=== PATIENT | male | born 1995 | race Caucasian/White ===

== ENCOUNTER 2018-06-10 12:16 | Emergency (ER) | payer MEDICAID ==
[~2018-06-10] VITALS: Ht 172.7 cm; Wt 63.6 kg
[2018-06-10 12:25] VITALS: Ht 172.7 cm; Wt 63.6 kg
[2018-06-10 13:08] VITALS: BP 122/81
[2018-06-10] MEDS ORDERED: AMOXICILLIN500 M1 PO (13:13)
== END 2018-06-10 13:09 | disposition home or self-care (01) ==
LOC: D.ER 12:16
DX: J02.9 Acute pharyngitis, unspecified (principal); R51 Headache; F17.200 Nicotine dependence, unspecified, uncomplicated

== ENCOUNTER 2019-01-08 20:34 | Emergency (ER) | payer SELFPAY ==
[~2019-01-08] VITALS: Ht 172.7 cm; Wt 65.3 kg
[~2019-01-08 20:34] MED LIST: AMOXICILLIN500 M1 PO
[2019-01-08 21:03] LABS: BASOPHILS 0.3 % (0-2); EOSINOPHILS 2.7 % (0-7); HEMATOCRIT 44.3 % (42.0-54.0); HEMOGLOBIN 15.2 g/dL (13.5-17.5); IMMATURE GRANULOCYTES 0.1 % (0-5); LYMPHOCYTES 33.9 % (15-50); MCH 31.1 pg (26.0-34.0); MCHC 34.3 g/dL (31.0-37.0); MCV 90.6 fL (80.0-100.0); MEAN PLATELET VOLUME 9.7 fL (7.4-10.4); MONOCYTES 10.1 % (2-11); NEUTROPHILS 52.9 % (40-80); PLATELET COUNT 291 10x3/uL (130-400); RBC 4.89 10x6/uL (4.20-6.10); RDW 12.4 % (11.5-14.5); WBC 6.7 10x3/uL (4.8-10.8)
[2019-01-08 21:22] LABS: ALBUMIN 4.3 g/dL (3.4-5.0); ALKALINE PHOSPHATASE 47 U/L (46-116); ALT (SGPT) 30 U/L (10-68); BILIRUBIN - TOTAL 0.35 mg/dL (0.2-1.3); CALC OSMOLALITY 277 mosm/kg (275-300); CALCIUM 8.7 mg/dL (8.5-10.1); CARBON DIOXIDE 28.5 mmol/L (21.0-32.0); CHLORIDE - SERUM 102 mmol/L (98-107); CREATININE - SERUM 1.1 mg/dL (0.6-1.3); GLUCOSE 94 mg/dL (74-106); POTASSIUM - SERUM 3.9 mmol/L (3.5-5.1); SODIUM 138 mmol/L (136-145); UREA NITROGEN 19 mg/dL (7-18); eGFR NON AFRICAN AMERICAN 87 mL/min (90-120)
[2019-01-08 21:28] LABS: APPEARANCE CLEAR (CLEAR)
[2019-01-08 21:29] LABS: SPECIFIC GRAVITY 1.015 (1.005-1.020)
[2019-01-08 21:30] LABS: COLOR ORANGE (YELLOW)
[2019-01-08 21:31] LABS: WHITE CELLS - URINE 0-5 /hpf (0-5)
[2019-01-08 21:32] LABS: BACTERIA FEW /hpf (NONE SEEN)
[2019-01-08] MEDS ORDERED: MACROBID100 MG PO (23:39)
[2019-01-08] MEDS ORDERED: KEFLEX500 MG PO (23:39)
== END 2019-01-09 00:10 | disposition home or self-care (01) ==
LOC: D.ER 20:34
PROVIDERS: Family Medicine
DX: R30.0 Dysuria (principal); R31.9 Hematuria, unspecified; R10.9 Unspecified abdominal pain